=== PATIENT | female | born 1980 | race Caucasian/White ===

== ENCOUNTER 2018-10-09 06:19 | Day surgery (SDC) | payer SELFPAY ==
[2018-10-08 17:53] LABS: HEMOGLOBIN A1C 6.1 % (4.5-6.2)
[2018-10-09] MEDS ORDERED: Lactated Ringers 1,000 ML IV SCH (06:30)
--- NOTE | 2018-10-09 07:14 | PCM.PREANE ---
Preanesthetic Assessment - Anesthesia/Transfusion/Family Hx Anesthesia History: Prior Anesthesia Without Reaction Family History of Anesthesia Reaction: No Transfusion History: No Prior Transfusion(s) - Review of Systems General: No Symptoms Pulmonary: No Symptoms Cardiovascular: No Symptoms Gastrointestinal: No Symptoms Neurological: No Symptoms Other: Reports: None - Physical Assessment NPO Status Date: 10/08/18 Height: 5 ft 5 in Weight: 105.687 kg ASA Class: 2 Mental Status: Alert & Oriented x3 Airway Class: Mallampati = 1 Dentition: Reports: Normal Dentition ROM/Head Extension: Full Lungs: Clear to Auscultation, Normal Respiratory Effort Cardiovascular: Regular Rate, Regular Rhythm - Lab Values: Laboratory Last Values WBC 7.19 K/uL (4.0-11.0) 10/08/18 17:10 RBC 4.64 M/uL (4.30-5.90) 10/08/18 17:10 Hgb 13.4 g/dL (12.0-16.0) 10/08/18 17:10 Hct 41.1 % (36.0-46.0) 10/08/18 17:10 MCV 88.6 fL (80.0-98.0) 10/08/18 17:10 MCH 28.9 pg (27.0-32.0) 10/08/18 17:10 MCHC 32.6 g/dL (31.0-37.0) 10/08/18 17:10 RDW Std Deviation 48.6 fl (28.0-62.0) 10/08/18 17:10 RDW Coeff of Junito 15 % (11.0-15.0) 10/08/18 17:10 Plt Count 265 K/uL (150-400) 10/08/18 17:10 MPV 10.20 fL (7.40-12.00) 10/08/18 17:10 Nucleated RBC % 0.0 /100WBC 10/08/18 17:10 Nucleated RBCs # 0 K/uL 10/08/18 17:10 Hemoglobin A1c 6.1 % (4.5-6.2) 10/08/18 17:10 TSH 3rd Generation 2.84 uIU/mL (0.36-3.74) 10/08/18 17:10 Blood Type A POSITIVE 10/08/18 17:10 Antibody Screen NEGATIVE 10/08/18 17:10 - Allergies Allergies/Adverse Reactions: Allergies Allergy/AdvReac Type Severity Reaction Status Date / Time No Known Allergies Allergy Verified 10/08/18 17:05 - Blood Blood Available: No - Anesthesia Plan Pre-Op Medication Ordered: None - Acknowledgements Anesthesia Type Planned: General Anesthesia Pt an Appropriate Candidate for the Planned Anesthesia: Yes Alternatives and Risks of Anesthesia Discussed w Pt/Guardian: Yes Pt/Guardian Understands and Agrees with Anesthesia Plan: Yes Additional Comments: anes prob list: gerd PLAN: ga/lma with toradol PreAnesthesia Questionnaire HEENT History: Reports: Other (See Below) Other HEENT History: wears glasses/contacts Respiratory History: Reports: Asthma Other Respiratory History: had exercise induced Asthma as a child- does not use an inhaler now 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 [No Known Home Meds] 10/08/18 [History] - CURRENT (IN HOUSE) MEDS Current Meds: Current Medications Lactated Ringer's (Ringers, Lactated) 1,000 mls @ 125 mls/hr IV ASDIRECTED [facility]
[2018-10-09] MEDS ORDERED: Lidocaine 2% 5 ML SDV ONE ×2 (07:17→12:04)
[2018-10-09] MEDS ORDERED: Midazolam 1 MG/ML 2 ML SDV ONE (07:18)
[2018-10-09] MEDS ORDERED: fentaNYL 100 MCG/2 ML SDV ONE (07:18)
[2018-10-09] MEDS ORDERED: Propofol 200 MG/20 ML SDV ONE (07:18)
[2018-10-09] MEDS ORDERED: Dexamethasone 4 MG/ML 5 ML MDV ONE (08:01)
[2018-10-09] MEDS ORDERED: Ondansetron 4 MG/2 ML SDV ONE (08:01)
[2018-10-09] MEDS ORDERED: Ketorolac 30 MG/ML SDV ONE (08:01)
[2018-10-09] MEDS ORDERED: Azithromycin 500 MG in Sodium Chloride 0.9% 250 ML IV ONE ×4 (08:30)
--- NOTE | 2018-10-09 08:41 | PCM.OPNOTE ---
- General Post-Op/Procedure Note Date of Surgery/Procedure: 10/09/18 Operative Procedure(s): suction D&C Findings: Uterus 12 week size mid position. Pre Op Diagnosis: incomplete Post-Op Diagnosis: Same Anesthesia Technique: General ET Tube Primary Surgeon: Nereyda Ravi Anesthesia Provider: Danilo Ervin Pathology: Products of conception Fluid Replacement, Intraop: 1,000 EBL in mLs: 50 Complications: None Known Condition: Good
--- NOTE | 2018-10-09 09:16 | PCM.POSTAN ---
POST ANESTHESIA ASSESSMENT - MENTAL STATUS Mental Status: Alert, Oriented - RESPIRATORY Respiratory Status: Respiratory Rate WNL, Airway Patent, O2 Saturation Stable - CARDIOVASCULAR CV Status: Pulse Rate WNL, Blood Pressure Stable - GASTROINTESTINAL GI Status: No Symptoms - POST OP HYDRATION Hydration Status: Adequate & Stable
--- NOTE | 2018-10-09 09:40 | PCM48HPAN ---
Post Anesthesia Note - EVALUATION WITHIN 48HRS OF ANESTHETIC Vital Signs in Normal Range: Yes Patient Participated in Evaluation: Yes Respiratory Function Stable: Yes Airway Patent: Yes Cardiovascular Function Stable: Yes Hydration Status Stable: Yes Pain Control Satisfactory: Yes Nausea and Vomiting Control Satisfactory: Yes Mental Status Recovered: Yes Resp Rate: 10
[2018-10-09] MEDS ORDERED: Ropivacaine 0.5% 5 MG/ML 30 ML SDV ONE (12:04)
[2018-10-09] MEDS ORDERED: Betamethasone Acetate/Betamethasone Sod Phosphate 30 MG/5 ML MDV ONE (12:04)
[2018-10-09] MEDS ORDERED: Iopamidol 200-M 10 ML vial ITHECAL ONE (12:05)
--- NOTE | 2018-10-09 12:46 | OR ---
SURGEON: Nereyda Ravi M.D. DATE OF PROCEDURE: 10/09/2018 PREOPERATIVE DIAGNOSIS: Incomplete miscarriage with hemorrhage. POSTOPERATIVE DIAGNOSIS: Incomplete miscarriage with hemorrhage. PROCEDURE PERFORMED: Suction D and C. PRIMARY SURGEON: Nereyda Ravi M.D. ANESTHESIA: General endotracheal. FLUIDS: 1000 mL crystalloid. EBL: 50 mL. FINDINGS: Prior to surgery, uterus was 12-week size, mid position, soft; postoperatively, 10 week size, mid position, firm. COMPLICATIONS: None known. DISPOSITION: Stable to recovery. BRIEF HISTORY: This is a 37-year-old female. She presents with bleeding in the clinic with a positive test. HCG level initially was in the range of 13,000 and progesterone was 4. Ultrasound showed no intrauterine but also no abnormality in the adnexa. Followup HCG level in 2 days was still 14,000, and therefore, I recommended proceeding with suction D and C for suspected retained products of conception and also to rule out ectopic with risks discussed including bleeding, infection, uterine perforation with injury to surrounding organs, risk of thromboembolic event, and risk of anesthesia. Understanding all these risks, she does desire to proceed. DESCRIPTION OF PROCEDURE: With the patient in dorsal lithotomy position, under adequate general anesthesia, the perineum and vagina were prepped with Betadine and draped in usual fashion for vaginal surgery. SCDs were in place. The bladder had been drained with a straight cath and she received azithromycin 500 mg preop. After an appropriate time-out was held, the perineum was prepped and draped, and bimanual examination was performed with findings as noted above. Speculum was placed in the vagina. The cervix was dilated and sounded to 13 cm. The cervix was dilated to a 12 mm Hegar dilator and a 12 mm straight suction curette was placed to the uterine fundus and with suction was retracted repetitively until no further tissue was obtained. Sharp curettage was then performed with a good uterine cry felt at the 12, 3, and 6 o'clock position. However, some remaining tissue at the 9 o'clock position, which was removed with curettage and repeated suction, and following this, there was a good cry felt on all surfaces. No further tissue was obtained. Therefore, all of the instruments removed from the vagina. There was minimal bleeding. The uterus was firm, 10 week size. Final sponge, needle, and instrument counts were reported as correct. There were no complications. The patient was transferred to recovery in good condition. KELLY LONGORIA /[id number]
== END 2018-10-09 10:40 | disposition home or self-care (01) ==
LOC: MW.SDS 06:19
PROVIDERS: ATTEND Obstetrics & Gynecology
DX: O03.4 Incomplete spontaneous abortion without complication (principal); L83 Acanthosis nigricans; E04.9 Nontoxic goiter, unspecified; E66.9 Obesity, unspecified; Z68.38 Body mass index [BMI] 38.0-38.9, adult; Z79.899 Other long term (current) drug therapy
CPT/HCPCS: 01965; 36415; 83036; 84443; 84702; 85027; 86850; 86900; 86901; J0456; J0702; J1100; J1885; J2001; J2250; J2405; J2704; J2795; J3010; J7050; J7120; Q9966

== ENCOUNTER 2020-08-16 07:47 | Day surgery (SDC) | payer MEDICAID ==
[~2020-08-16 07:47] MED LIST: Dexamethasone 4 MG/ML 5 ML MDV ONE; Lactated Ringers 1,000 ML IV SCH; Midazolam 1 MG/ML 2 ML SDV ONE; Ondansetron 4 MG/2 ML SDV ONE; Propofol 200 MG/20 ML SDV ONE; Rocuronium Bromide 50 MG/5 ML Syringe ONE; Sodium Chloride 0.9% 10 ML SDV IV PRN; Sodium Chloride 0.9% 10 ML Syringe FLUSH PRN; Sodium Chloride 0.9% 2.5 ML Syringe FLUSH PRN; ceFAZolin 2 GM in Premix Bag 1 BAG IV ONE; fentaNYL 250 MCG/5 ML SDV ONE
--- NOTE | 2020-08-16 08:31 | PCM.PREANE ---
Preanesthetic Assessment - Anesthesia/Transfusion/Family Hx Anesthesia History: Prior Anesthesia Reaction Type of Anesthesia Reaction: Excessive Nausea/Vomiting Family History of Anesthesia Reaction: No Transfusion History: No Prior Transfusion(s) - Review of Systems General: No Symptoms Pulmonary: No Symptoms Cardiovascular: No Symptoms Gastrointestinal: No Symptoms Neurological: No Symptoms Other: Reports: None - Physical Assessment NPO Status Date: 08/16/20 NPO Status Time: 00:01 Vital Signs: Last Vital Signs Temp 97.2 F 08/16/20 08:00 Pulse 76 08/16/20 08:00 Resp 15 08/16/20 08:00 BP 189/93 H 08/16/20 08:00 Pulse Ox 98 08/16/20 08:00 Height: 5 ft 5 in Weight: 240 lb ASA Class: 2 Mental Status: Alert & Oriented x3 Airway Class: Mallampati = 3 Dentition: Reports: Normal Dentition ROM/Head Extension: Limited/Partial Lungs: Clear to Auscultation, Normal Respiratory Effort Cardiovascular: Regular Rate, Regular Rhythm - Lab Values: Laboratory Last Values Urine HCG, Qual NEGATIVE (NEGATIVE) 08/16/20 07:45 - Allergies Allergies/Adverse Reactions: Allergies Allergy/AdvReac Type Severity Reaction Status Date / Time No Known Allergies Allergy Verified 08/10/20 08:18 - Anesthesia Plan Pre-Op Medication Ordered: None - Acknowledgements Anesthesia Type Planned: General Anesthesia Pt an Appropriate Candidate for the Planned Anesthesia: Yes Alternatives and Risks of Anesthesia Discussed w Pt/Guardian: Yes Pt/Guardian Understands and Agrees with Anesthesia Plan: Yes Additional Comments: npo after mn fatigue morbid obesity bmi 39 tob none etoh rare hayfever no cv problems par no questions nausea after T&A 11 years old PreAnesthesia Questionnaire HEENT History: Reports: Other (See Below) Other HEENT History: wears glasses/contacts Cardiovascular History: Reports: Other (See Below) Other Cardiovascular History: "elevated BP at times", not on medication Respiratory History: Reports: Asthma Other Respiratory History: had exercise induced Asthma as a child- does not use an inhaler now Gastrointestinal History: Reports: Other (See Below) Other Gastrointestinal History: occasional heartburn Genitourinary History: Reports: None 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: , 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 Musculoskeletal History: Reports: None Neurological History: Reports: None Psychiatric History: Reports: None Endocrine/Metabolic History: Reports: Obesity/BMI 30+ Other Endocrine/Metabolic History: hypothyroidism in the past, no longer on medication Hematologic History: Reports: None Immunologic History: Reports: None Oncologic (Cancer) History: Reports: None Dermatologic History: Reports: Other (See Below) Other Dermatologic History: occasional rash under breasts - Past Surgical History Head Surgeries/Procedures: Reports: None HEENT Surgical History: Reports: Tonsillectomy Cardiovascular Surgical History: Reports: None Respiratory Surgical History: Reports: None GI Surgical History: Reports: None Female Surgical History: Reports: D&C Endocrine Surgical History: Reports: None Neurological Surgical History: Reports: None Musculoskeletal Surgical History: Reports: None Oncologic Surgical History: Reports: None Dermatological Surgical History: Reports: None - SUBSTANCE USE Tobacco Use Status *Q: Never Tobacco User - HOME MEDS Home Medications: Home Meds Cholecalciferol (Vitamin D3) [Vitamin D] 4,000 units PO DAILY 08/10/20 [History] Clotrimazole [Clotrimazole 1%] 1 applic TOP ASDIRECTED PRN 08/10/20 [History] - CURRENT (IN HOUSE) MEDS Current Meds: Current Medications Lactated Ringer's (Ringers, Lactated) 1,000 mls @ 125 mls/hr IV ASDIRECTED [facility] Last Admin: 08/16/20 08:20 Dose: 125 mls/hr Documented by: Sodium Chloride (Sodium Chloride 0.9% 2.5 Ml Syringe) 2.5 ml FLUSH ASDIRECTED PRN PRN Reason: Keep Vein Open Sodium Chloride (Sodium Chloride 0.9% 10 Ml Sdv) 10 ml IV ASDIRECTED PRN PRN Reason: IV Use Sodium Chloride (Sodium Chloride 0.9% 10 Ml Syringe) 10 ml FLUSH ASDIRECTED PRN PRN Reason: Keep Vein Open Discontinued Medications Dexamethasone (Dexamethasone 4 Mg/Ml 5 Ml Mdv) Confirm Administered Dose 20 mg .ROUTE .STK-MED ONE Stop: 08/16/20 06:59 Fentanyl (Fentanyl 250 Mcg/5 Ml Sdv) Confirm Administered Dose 250 mcg .ROUTE .STK-MED ONE Stop: 08/16/20 06:57 Cefazolin Sodium/Dextrose 2 gm (/ Premix) 50 mls @ 100 mls/hr IV ONETIME ONE Stop: 08/15/20 10:29 Lidocaine HCl (Lidocaine 1% 5 Ml Sdv) Confirm Administered Dose 5 ml .ROUTE .STm[employer]ch[employer] publishing-MED ONE Stop: 08/16/20 06:58 Midazolam HCl (Midazolam 1 Mg/Ml 2 Ml Sdv) Confirm Administered Dose 2 mg .ROUTE .ST[employer]-MED ONE Stop: 08/16/20 06:57 Ondansetron HCl (Ondansetron 4 Mg/2 Ml Sdv) Confirm Administered Dose 4 mg .ROUTE .[employer]First ([employer])MED ONE Stop: 08/16/20 06:59 Propofol (Propofol 200 Mg/20 Ml Sdv) Confirm Administered Dose 200 mg .ROUTE .ST[employer]First ([employer])MED ONE Stop: 08/16/20 06:57 Rocuronium [place] (Rocuronium [place] 50 Mg/5 Ml Syringe) Confirm Administered Dose 50 mg .ROUTE .[facility]MED ONE Stop: 08/16/20 07:00
[2020-08-16] MEDS ORDERED: Octyl 2-Cyanoacrylate 1 Tube ONE (09:11)
[2020-08-16] MEDS ORDERED: Bupivacaine 0.5% 30 ML SDV ONE (09:11)
[2020-08-16] MEDS ORDERED: Propofol 200 MG/20 ML SDV ONE (09:43)
[2020-08-16] MEDS ORDERED: ePHEDrine 50 MG/ML SDV ONE (10:07)
[2020-08-16] MEDS ORDERED: Glycopyrrolate 0.2 MG/ML SDV ONE (10:14)
[2020-08-16] MEDS ORDERED: Ketorolac 30 MG/ML SDV ONE (10:37)
[2020-08-16] MEDS ORDERED: Acetaminophen/oxyCODONE 325-5 MG Tab PO PRN (11:12)
--- NOTE | 2020-08-16 11:52 | PCM.POSTAN ---
POST ANESTHESIA ASSESSMENT - MENTAL STATUS Mental Status: Alert (no anesthetic problems), Oriented - VITAL SIGNS Vital Signs: Last Vital Signs Temp 97.7 F 08/16/20 11:45 Pulse 92 08/16/20 11:45 Resp 14 08/16/20 11:45 BP 145/71 H 08/16/20 11:45 Pulse Ox 94 L 08/16/20 11:45 - RESPIRATORY Respiratory Status: Respiratory Rate WNL, Airway Patent, O2 Saturation Stable - CARDIOVASCULAR CV Status: Pulse Rate WNL, Blood Pressure Stable - GASTROINTESTINAL GI Status: No Symptoms - POST OP HYDRATION Hydration Status: Adequate & Stable
[2020-08-16] MEDS ORDERED: Acetaminophen 1,000 MG in Premix Bag 1 BAG IV ONE (13:42)
[2020-08-16] MEDS ORDERED: Famotidine 20 MG/2 ML SDV ONE (13:54)
[2020-08-16] MEDS ORDERED: Sodium Chloride 0.9% 10 ML Syringe FLUSH PRN (15:42)
[2020-08-16] MEDS ORDERED: Sodium Chloride 0.9% 2.5 ML Syringe FLUSH PRN (15:42)
[2020-08-16] MEDS ORDERED: Ondansetron 4 MG/2 ML SDV IVPUSH PRN (15:43)
--- NOTE | 2020-08-16 16:02 | PCM.OPNOTE ---
- General Post-Op/Procedure Note Date of Surgery/Procedure: 08/16/20 Operative Procedure(s): laparoscopic cholecystectomy Findings: Gallbladder containing stones. omental adhesions to the infundibulum. Pre Op Diagnosis: Symptomatic cholelithiasis Post-Op Diagnosis: same Anesthesia Technique: General ET Tube Primary Surgeon: Sandee Garcia Fluid Replacement, Intraop: 800 Output, Urine Amount: 50 EBL in mLs: 5 Condition: Good Free Text/Narrative:: Intake & Output 08/16/20 08/16/20 08/16/20 06:59 14:59 22:59 Intake Total 900 Output Total 100 Balance 800
--- NOTE | 2020-08-16 16:03 | PCM.SN.2 ---
- Free Text/Narrative Note: Patient unable to wean off of oxygen post op. When O2 removed her saturations dropped to the 70s. The patient is awake, alert, tolerating a diet and otherwise her VS are stable. She has used an IS and is sitting up in bed, but unable to wean. Will monitor overnight. Likely has KILO that is undiagnosed. Wean oxygen as appropriate.
--- NOTE | 2020-08-16 17:20 | OR ---
SURGEON: SANDEE MAHMOOD MD DATE OF PROCEDURE: 08/16/2020 PREOPERATIVE DIAGNOSIS: Symptomatic cholelithiasis. POSTOPERATIVE DIAGNOSIS: Symptomatic cholelithiasis. PROCEDURE PERFORMED: Laparoscopic cholecystectomy. PRIMARY SURGEON: Sandee Mahmood MD ANESTHESIA: General endotracheal anesthesia. FLUIDS: 800 mL of crystalloid. ESTIMATED BLOOD LOSS: 5 mL. URINE OUTPUT: 50 mL. FINDINGS: Enlarged gallbladder containing stones. Omental adhesions along the infundibulum. COMPLICATIONS: None. INDICATIONS: The patient is a 39-year-old female who presents with symptomatic cholelithiasis. I explained the need for cholecystectomy. I will attempt it laparoscopically but convert to open should I be unable to perform it safely. We discussed the expected perioperative course as well as the risks including bleeding, infection, and damage to surrounding structures. She verbalized understanding and wishes to proceed. PROCEDURE IN DETAIL: The patient was brought in to the OR and placed on the OR table in supine position. A time-out was completed verifying the patient's name, age, date of , allergies, and procedure to be performed. General endotracheal anesthesia was induced. The left arm was tucked to the patient's side, and a Nguyen catheter placed. The abdomen was prepped and draped in usual standard fashion. I anesthetized the supraumbilical fold with 0.5% Marcaine plain. A 15 blade was used to make an incision along the supraumbilical fold. Cautery was used to dissect into the level of subcutaneous fat. The patient was noted to have a supraumbilical hernia. This was quite small. I dissected down to the level of the subcutaneous fat. I grasped the edges of the hernia defect with Kochers. The hernia sac was opened sharply with Metzenbaum scissors. Using hemostat and sharp dissection, I dissected down into the abdomen. The hernia sac contained preperitoneal fat. This was reduced back into the abdomen. The hernia defect size was 5 mm. In order to extent my 12 mm Marcial trocar, I used curved Mo scissors to open the fascia along the upper midline. A 12 mm Marcial trocar was introduced into the abdomen, and the abdomen was insufflated. A 5 mm, 30-degree scope was inserted into the abdomen. I inspected the area underneath my initial trocar placement. No damage to surrounding structures was noted. The patient was placed into reverse Trendelenburg position and airplaned slightly to the left. 5 mm trocars were placed in the following locations under direct visualization; one in the epigastric area, one in the right flank, and one 2 fingerbreadths below the right subcostal margin in the midclavicular line. The dome of the gallbladder was grasped and elevated. The patient had omental adhesions along the infundibulum. These were taken down with blunt dissection as well as hook cautery. I then began my dissection along the cystic triangle. The node of Calot was identified. Using a combination of blunt dissection with both suction, a [place], and [place], I took down the majority of the adhesions along the cystic duct and cystic artery. I then used hook cautery to take down the attachments of the gallbladder to the liver bed laterally and medially. I then cleared away 1/3 of my cystic plate. Once I identified both my cystic duct and artery, photographs were taken. The cystic artery branched off the into the gallbladder. I doubly clipped and ligated the 2 branches going into the gallbladder. I then doubly clipped and ligated the cystic duct. The remainder of the attachments of the gallbladder to the cystic plate were taken down using hook cautery. The gallbladder was then placed in an Endo Catch bag and removed through the supraumbilical port site. The gallbladder contained large gallstones, and I had to increase the size of my 12 mm trocar site with scissors just to deliver the gallbladder outside of the abdominal wall. I reinserted my 12 mm Marcial trocar and inspected my operative field. It appeared to be hemostatic, and there was no evidence of bile leakage. A photograph of this was taken. There was a small amount of bruising along the liver bed just above where I took my gallbladder off. A photograph of this was taken. The 5 mm trocars were removed under direct visualization. The abdomen allowed to desufflate. The 12 mm Marcial trocar was removed as well. The fascia at the supraumbilical port site was closed with [id number] 0 Vicryl sutures. This closed the hernia defect. The subcutaneous fat along the supraumbilical port site was closed with interrupted 3-0 Vicryl sutures. The skin was closed with a running 4-0 Monocryl stitch. Interrupted 4-0 Monocryl sutures were used to close the 5 mm trocar sites. Dermabond and sterile dressings were applied. The patient tolerated the procedure well, was extubated and taken to PACU in stable condition. All counts were complete and correct at the end of the case. JORDANA LONGORIA /[id number]
[2020-08-16] MEDS ORDERED: Ketorolac 10 MG Tab PO PRN (17:30)
[2020-08-16] MEDS: Acetaminophen/oxyCODONE 325-5 MG Tab PO PRN (18:55)
--- NOTE | 2020-08-17 07:16 | PCM48HPAN ---
Post Anesthesia Note - EVALUATION WITHIN 48HRS OF ANESTHETIC Vital Signs in Normal Range: Yes Patient Participated in Evaluation: Yes Respiratory Function Stable: Yes Airway Patent: Yes Cardiovascular Function Stable: Yes Hydration Status Stable: Yes Pain Control Satisfactory: Yes Nausea and Vomiting Control Satisfactory: Yes Mental Status Recovered: Yes Vital Signs: Last Vital Signs Temp 36.8 C 08/17/20 04:54 Pulse 68 08/17/20 04:54 Resp 16 08/17/20 04:54 BP 118/71 08/17/20 04:54 Pulse Ox 98 08/17/20 04:54
--- NOTE | 2020-08-17 08:14 | PCM.SURGPN ---
- General Info Date of Service: 08/17/20 Date of Surgery/Procedure: 08/16/20 POD#: 1 Functional Status: Reports: Pain Controlled, Tolerating Diet, Ambulating, Urinating, Incentive Spirometry - Review of Systems General: Reports: No Symptoms HEENT: Reports: No Symptoms Pulmonary: Reports: No Symptoms Cardiovascular: Reports: No Symptoms Gastrointestinal: Reports: No Symptoms Genitourinary: Reports: No Symptoms - Patient Data Vitals - Most Recent: Last Vital Signs Temp 36.2 C 08/17/20 07:32 Pulse 77 08/17/20 07:32 Resp 20 08/17/20 07:32 BP 103/53 L 08/17/20 07:32 Pulse Ox 98 08/17/20 07:32 Weight - Most Recent: 108.862 kg I&O - Last 24 Hours: Intake & Output 08/16/20 08/17/20 08/17/20 22:59 06:59 14:59 Intake Total 2100 1070 Output Total 50 1700 Balance 2050 -630 Lab Results Last 24 Hrs: Laboratory Results - last 24 hr 08/16/20 Range/Units 07:45 Urine HCG, Qual NEGATIVE (NEGATIVE) Med Orders - Current: Current Medications Lactated Ringer's (Ringers, Lactated) 1,000 mls @ 125 mls/hr IV ASDIRECTED [facility] Last Admin: 08/16/20 08:20 Dose: 125 mls/hr Documented by: Ketorolac Tromethamine (Ketorolac 10 Mg Tab) 10 mg PO Q6H PRN PRN Reason: Pain Stop: 08/21/20 17:31 Ondansetron HCl (Ondansetron 4 Mg/2 Ml Sdv) 4 mg IVPUSH Q6H PRN PRN Reason: Nausea/Vomiting Oxycodone/Acetaminophen (Acetaminophen/Oxycodone 325-5 Mg Tab) 1 - 2 tab PO Q4H PRN PRN Reason: Pain (moderate 4-6) Last Admin: 08/16/20 18:55 Dose: 1 tab Documented by: Sodium Chloride (Sodium Chloride 0.9% 2.5 Ml Syringe) 2.5 ml FLUSH ASDIRECTED PRN PRN Reason: Keep Vein Open Sodium Chloride (Sodium Chloride 0.9% 10 Ml Sdv) 10 ml IV ASDIRECTED PRN PRN Reason: IV Use Sodium Chloride (Sodium Chloride 0.9% 10 Ml Syringe) 10 ml FLUSH ASDIRECTED PRN PRN Reason: Keep Vein Open Sodium Chloride (Sodium Chloride 0.9% 10 Ml Syringe) 10 ml FLUSH ASDIRECTED PRN PRN Reason: Keep Vein Open Sodium Chloride (Sodium Chloride 0.9% 2.5 Ml Syringe) 2.5 ml FLUSH ASDIRECTED PRN PRN Reason: Keep Vein Open Discontinued Medications Bupivacaine HCl (Bupivacaine 0.5% 30 Ml Sdv) Confirm Administered Dose 30 ml .ROUTE .STK-MED ONE Stop: 08/16/20 09:12 Dexamethasone (Dexamethasone 4 Mg/Ml 5 Ml Mdv) Confirm Administered Dose 20 mg .ROUTE .STK-MED ONE Stop: 08/16/20 06:59 Ephedrine Sulfate (Ephedrine 50 Mg/Ml Sdv) Confirm Administered Dose 50 mg .ROUTE .STK-MED ONE Stop: 08/16/20 10:08 Famotidine (Famotidine 20 Mg/2 Ml Sdv) Confirm Administered Dose 20 mg .ROUTE .STK-MED ONE Stop: 08/16/20 13:55 Fentanyl (Fentanyl 250 Mcg/5 Ml Sdv) Confirm Administered Dose 250 mcg .ROUTE .STK-MED ONE Stop: 08/16/20 06:57 Glycopyrrolate (Glycopyrrolate 0.2 Mg/Ml Sdv) Confirm Administered Dose 0.4 mg .ROUTE .STK-MED ONE Stop: 08/16/20 10:15 Cefazolin Sodium/Dextrose 2 gm (/ Premix) 50 mls @ 100 mls/hr IV ONETIME ONE Stop: 08/15/20 10:29 Cefazolin Sodium/Dextrose (Ancef 2 Gm/50 Ml) Confirm Administered Dose 50 mls @ as directed .ROUTE .STK-MED ONE Stop: 08/16/20 09:04 Acetaminophen 1,000 mg/ Premix 100 mls @ 400 mls/hr IV NOW ONE Stop: 08/16/20 13:56 Last Admin: 08/16/20 13:47 Dose: 400 mls/hr Documented by: Acetaminophen (Ofirmev 1000 Mg/100 Ml) Confirm Administered Dose 100 mls @ as directed .ROUTE .STK-MED ONE Stop: 08/16/20 13:47 Last Admin: 08/16/20 18:47 Dose: Not Given Documented by: Ketorolac Tromethamine (Ketorolac 30 Mg/Ml Sdv) Confirm Administered Dose 30 mg .ROUTE .STK-MED ONE Stop: 08/16/20 10:38 Lidocaine HCl (Lidocaine 1% 5 Ml Sdv) Confirm Administered Dose 5 ml .ROUTE .STK-MED ONE Stop: 08/16/20 06:58 Midazolam HCl (Midazolam 1 Mg/Ml 2 Ml Sdv) Confirm Administered Dose 2 mg .ROUTE .STK-MED ONE Stop: 08/16/20 06:57 Octyl Cyanoacrylate (Octyl 2-Cyanoacrylate 1 Tube) Confirm Administered Dose 1 applic .ROUTE .STK-MED ONE Stop: 08/16/20 09:12 Ondansetron HCl (Ondansetron 4 Mg/2 Ml Sdv) Confirm Administered Dose 4 mg .ROUTE .STK-MED ONE Stop: 08/16/20 06:59 Oxycodone/Acetaminophen (Acetaminophen/Oxycodone 325-5 Mg Tab) 2 tab PO Q4H PRN PRN Reason: Pain (severe 7-10) Propofol (Propofol 200 Mg/20 Ml Sdv) Confirm Administered Dose 200 mg .ROUTE .STK-MED ONE Stop: 08/16/20 06:57 Propofol (Propofol 200 Mg/20 Ml Sdv) Confirm Administered Dose 200 mg .ROUTE .STK-MED ONE Stop: 08/16/20 09:44 Rocuronium Maynard (Rocuronium Maynard 50 Mg/5 Ml Syringe) Confirm Administered Dose 50 mg .ROUTE .STK-MED ONE Stop: 08/16/20 07:00 - Exam Wound/Incisions: Healing Well, Dressing Dry and Intact General: Alert, Oriented Lungs: Normal Respiratory Effort Cardiovascular: Regular Rate GI/Abdominal Exam: Soft, Non-Tender, No Distention, No Mass Skin: Warm, Dry, Intact Sepsis Event Note - Evaluation Sepsis Screening Result: No Definite Risk - Focused Exam Vital Signs: Vital Signs Temp Pulse Resp BP Pulse Ox 08/17/20 07:32 36.2 C 77 20 103/53 L 98 08/17/20 04:54 36.8 C 68 16 118/71 98 08/17/20 01:36 36.1 C 88 16 130/71 87 L 08/16/20 20:00 37.1 C 96 15 137/71 96 - Problem List & Annotations (1) Symptomatic cholelithiasis SNOMED Code(s): 632864362, 314984373 Code(s): K80.20 - CALCULUS OF GALLBLADDER W/O CHOLECYSTITIS W/O OBSTRUCTION Status: Acute Current Visit: Yes - Problem List Review Problem List Initiated/Reviewed/Updated: Yes - My Orders Last 24 Hours: Active Orders 24 hr Category Date Time Status Overnight Pulse Oximetry [RC] Click to Edit Care 08/16/20 16:04 Active Up ad Mirna [RC] ASDIRECTED Care 08/16/20 15:42 Active Regular Diet [DIET] Diet 08/16/20 Dinner Active Acetaminophen/oxyCODONE [Percocet 325-5 MG] Med 08/16/20 15:44 Active 1 - 2 tab PO Q4H PRN Ketorolac [Toradol] Med 08/16/20 17:30 Active 10 mg PO Q6H PRN Ondansetron [Zofran] Med 08/16/20 15:43 Active 4 mg IVPUSH Q6H PRN Sodium Chloride 0.9% [Saline Flush] Med 08/16/20 15:42 Active 10 ml FLUSH ASDIRECTED PRN Sodium Chloride 0.9% [Saline Flush] Med 08/16/20 15:42 Active 2.5 ml FLUSH ASDIRECTED PRN Convert IV to Saline Lock [OM.PC] Routine Oth 08/16/20 15:42 Ordered Medication Orders Lactated Ringer's (Ringers, Lactated) 1,000 mls @ 125 mls/hr IV ASDIRECTED [facility] Last Admin: 08/16/20 08:20 Dose: 125 mls/hr Documented by: LILIANA Ketorolac Tromethamine (Ketorolac 10 Mg Tab) 10 mg PO Q6H PRN PRN Reason: Pain Stop: 08/21/20 17:31 Ondansetron HCl (Ondansetron 4 Mg/2 Ml Sdv) 4 mg IVPUSH Q6H PRN PRN Reason: Nausea/Vomiting Oxycodone/Acetaminophen (Acetaminophen/Oxycodone 325-5 Mg Tab) 1 - 2 tab PO Q4H PRN PRN Reason: Pain (moderate 4-6) Last Admin: 08/16/20 18:55 Dose: 1 tab Documented by: JEWEL Sodium Chloride (Sodium Chloride 0.9% 2.5 Ml Syringe) 2.5 ml FLUSH ASDIRECTED PRN PRN Reason: Keep Vein Open Sodium Chloride (Sodium Chloride 0.9% 10 Ml Sdv) 10 ml IV ASDIRECTED PRN PRN Reason: IV Use Sodium Chloride (Sodium Chloride 0.9% 10 Ml Syringe) 10 ml FLUSH ASDIRECTED PRN PRN Reason: Keep Vein Open Sodium Chloride (Sodium Chloride 0.9% 10 Ml Syringe) 10 ml FLUSH ASDIRECTED PRN PRN Reason: Keep Vein Open Sodium Chloride (Sodium Chloride 0.9% 2.5 Ml Syringe) 2.5 ml FLUSH ASDIRECTED PRN PRN Reason: Keep Vein Open - Plan Plan (Free Text/Narrative):: Patient is doing well this morning. She is comfortable. She is tolerating a regular diet and urinating without difficulty. She was weaned off oxygen last night while asleep had saturations in the high 80s. She is put on 2 L and her sats increased. She'll be weaned off of oxygen again this morning. The patient likely has obstructive sleep apnea. We'll schedule her for outpatient testing with her primary care physician. She is also hypertensive throughout her stay. We'll have her follow-up with her primary care physician for this as well. The surgical standpoint she is looking good. We went over the discharge instructions again. She is cleared for discharge.
[2020-08-17] MEDS: Acetaminophen/oxyCODONE 325-5 MG Tab PO PRN (08:24)
== END 2020-08-17 10:00 | disposition home or self-care (01) ==
LOC: MW.SDS 07:47 → MW.MS 15:50 → MW.SDS 08-17 10:00
PROVIDERS: ATTEND Surgery
DX: K80.11 Calculus of gallbladder with chronic cholecystitis with obstruction (principal); K82.1 Hydrops of gallbladder; E66.01 Morbid (severe) obesity due to excess calories; Z68.39 Body mass index [BMI] 39.0-39.9, adult
CPT/HCPCS: 47562; 81025; 88304; A9270; J0131; J0690; J1100; J1885; J2250; J2405; J2704; J3010; J3490; J7120; 00790

== ENCOUNTER 2020-08-17 21:03 | Emergency (ER) | payer MEDICAID ==
[2020-08-17] MEDS ORDERED: Sodium Chloride 0.9% 1,000 ML IV ONE (21:26)
[2020-08-17] MEDS ORDERED: Ondansetron 4 MG/2 ML SDV IVPUSH ONE (21:26)
--- NOTE | 2020-08-17 21:32 | EDM.PDOC ---
<Paul Gentile - Last Filed: 08/18/20 02:49> ED HPI GENERAL MEDICAL PROBLEM - General Chief Complaint: Abdominal Pain Stated Complaint: COMPLICATIONS AFTER SURGERY Time Seen by Provider: 08/17/20 21:16 - History of Present Illness INITIAL COMMENTS - FREE TEXT/NARRATIVE: Patient was signed out to me by Albina MALLOY pending CT at 7PM I did reevaluate the patient and patient stated that her pain had significantly improved. She states that she is mildly nauseous otherwise no complaints. Her vitals were normal at this time. Labs reviewed CBC was unremarkable, CMP reveals hyperglycemia at 148, hy pocalcemia at 7.9, mild elevation in AST at 58 and ALT of 73 and hypoalbuminemia at 3.2. The radiological images were viewed by myself along with reading the report from the radiologist. CT abdomen pelvis with contrast reveals a small amount of gas in the bladder likely due to recent bladder instrumentation. A small amount of pelvic ascites is present with a small amount of fluid in the cholecystectomy surgical bed. After imaging I did contact general surgeon Dr. Garcia and I did discuss the labs and results of the CT with her. She states that this is expected postoperative pain. She recommended MiraLAX twice a day and to continue with pain medication. She stated the patient is cleared for use of ibuprofen. She is to maintain fluid hydration. I did discuss the plan with the patient. She was amenable to this plan. I did switch her pain medication to Star as she stated that the Percocet was causing her hands to itch. She is to return for any new or worsening symptoms. She was amenable to discharge and had no further questions DISPOSITION: The patient was discharged home in stable condition. The patient will follow up with general surgery at her scheduled appointment CONDITION: Fair PROCEDURES: None FINAL IMPRESSION(S)/DIAGNOSES: 1. Acute postoperative pain Paul Gentile M.D. - Related Data Allergies Allergy/AdvReac Type Severity Reaction Status Date / Time No Known Allergies Allergy Verified 08/17/20 21:25 Home Meds: Home Meds Acetaminophen/HYDROcodone [Star 325-5 MG] 1 tab PO Q6H PRN #15 tablet 08/18/20 [Rx] Ibuprofen 400 mg PO Q6HR #28 tablet 08/18/20 [Rx] ED ROS GENERAL - Review of Systems Review Of Systems: See Below ED EXAM, GI/ABD - Physical Exam Exam: See Below Departure - Departure Time of Disposition: 00:46 Disposition: Home, Self-Care 01 Condition: Fair Clinical Impression: Post-operative pain - Discharge Information *PRESCRIPTION DRUG MONITORING PROGRAM REVIEWED*: No *COPY OF PRESCRIPTION DRUG MONITORING REPORT IN PATIENT ZOHREH: No Prescriptions: Ibuprofen 400 mg PO Q6HR #28 tablet Acetaminophen/HYDROcodone [Star 325-5 MG] 1 tab PO Q6H PRN #15 tablet PRN Reason: Breakthrough Pain Instructions: Pain Relief Before and After Surgery Referrals: PCP,None [Primary Care Provider] - Forms: ED Department Discharge Additional Instructions: You evaluate today on an emergent basis. At this time your CT showed normal postoperative findings. I did speak with your surgeon and she recommended using MiraLAX twice a day and to continue with fluid hydration at home. There was some difficulty sending your Star prescription. I did provide you with a paper copy. Please take this to the pharmacy and they have any questions please tell him to call the emergency department. If you do not have a bowel movement within 4 days please call your surgeon's office for further direction. If you have any worsening of your symptoms please return to the emergency department. [facility] - General Surgery Professional [address], [address] [place] [address] The patient is informed of any results of their evaluation and diagnostic workup and all questions are answered. They are given discharge instructions and return precautions. The patient is stable for discharge. The patient states they understand and agree with the plan and that they will return if their symptoms get worse or if they have any new concerns. The following information is given to patients seen in the emergency department who are being discharged to home. This information is to outline your options for follow-up care. We provide all patients seen in our emergency department with a follow-up referral. The need for follow-up, as well as the timing and circumstances, are variable depending upon the specifics of your emergency department visit. If you don't have a primary care physician on staff, we will provide you with a referral. We always advise you to contact your personal physician following an emergency department visit to inform them of the circumstance of the visit and for follow-up with them and/or the need for any referrals to a consulting specialist. The emergency department will also refer you to a specialist when appropriate. This referral assures that you have the opportunity for follow-up care with a specialist. All of these measure are taken in an effort to provide you with optimal care, which includes your follow-up. Under all circumstances we always encourage you to contact your private physician who remains a resource for coordinating your care. When calling for follow-up care, please make the office aware that this follow-up is from your recent emergency room visit. If for any reason you are refused follow-up, please contact the [facility] Emergency Department at and asked to speak to the emergency department charge nurse. <David Hernandez E - Last Filed: 08/18/20 09:50> ED HPI GENERAL MEDICAL PROBLEM - General Source of Information: Reports: Patient History Limitations: Reports: No Limitations - History of Present Illness INITIAL COMMENTS - FREE TEXT/NARRATIVE: HISTORY AND PHYSICAL: History of present illness: Patient is a 39-year-old female who presents to the emergency room with c omplaints of generalized abdominal pain, bloating, nausea and vomiting. Patient had a scheduled cholecystectomy by Dr. Garcia done yesterday. She was discharged this morning as she was urinating and tolerating p.o. She was discharged with Percocet. She has taken a total of 3 doses today. Her last dose was approximately 1 hour prior to arrival. She states shortly after her hands became itchy, she felt nauseated and was retching to vomit. Shortly after she had increased abdominal pain and tenderness. She has been passing gas and currently has the sensation of needing to have a bowel movement but had not had one after surgery. Patient denies any fever, chills, headache, change in vision, syncope or near syncope. Denies any chest pain, back pain, shortness of breath or cough. Has not noted any hematuria. Patient has been eating and drinking appropriately. Review of systems: As per history of present illness and below otherwise all systems reviewed and negative. Past medical history: As per history of present illness and as reviewed below otherwise noncontributory. Surgical history: As per history of present illness and as reviewed below otherwise noncontributory. Social history: See social history for further information Family history: As per history of present illness and as reviewed below otherwise noncontributory. Physical exam: General: Well developed and well nourished. Alert and orientated x 3. Nontoxic in appearance and in no acute distress. Vital signs are stable and have been reviewed by me. Nursing notes were reviewed. HEENT: Atraumatic, normocephalic, pupils equal and reactive bilaterally, negative for conjunctival pallor or scleral icterus, mucous membranes moist, neck supple, nontender, trachea midline. No drooling or trismus noted. No men ingeal signs. No hot potato voice noted. Lungs: Clear to auscultation bilaterally. No wheezes, rales, or rhonchi. Chest nontender. Normal work of breathing, no accessory muscles used. Heart: S1S2, regular rate and rhythm without overt murmur, gallops, or rubs. No JVD. No peripheral edema Abdomen: Recent laparoscopic cholecystectomy with 3 stab sites to the abdomen. Generalized tenderness around these stab sites. Soft, mildly distended, generalized tenderness. Normoactive bowel sounds. Negative for masses or costovertebral tenderness. Skin: 3 stab sites with intact dressings to abdomen. No surrounding errythema. Remaining skin is intact, warm, dry. No lesions or rashes noted. Hematologic: No petechiae or purpra. Mucosa appropriate color and normal nail bed color and refill. Extremities: Atraumatic, moves all extremities per self without difficulty or deficits, negative for cords or calf pain. Neurovascular unremarkable. Neuro: Awake, alert, oriented. Cranial nerves II through XII unremarkable. Cerebellum unremarkable. Motor and sensory unremarkable throughout. Exam nonfocal. Psychiatric: Mood and affect are appropriate. Normal thought process. Answering questions appropriately. Notes: *This patient was seen and evaluated during the 2019 SARS-CoV-2 novel coronavirus pandemic period. Community viral transmission is ongoing at time of this encounter and the emergency department is operating under pandemic response procedures. Patient is agreeable to lab work and imaging at this time. She is vitally stable. Will give some IV fluids and Zofran while waiting for results. 2200: Diagnostic results are pending. Patient remains stable. Dr Gentile will follow labs and disposition patient appropriately. Diagnostics: CBC, CMP, UA, CT abd/pelvis Therapeutics: IV fluids, Zofran Impression: Post-Operative Abdominal Pain Definitive disposition and diagnosis as appropriate pending reevaluation and review of above. abdominal Pain Score (Numeric/FACES): 8 Past Medical History HEENT History: Reports: Other (See Below) Other HEENT History: wears glasses/contacts Cardiovascular History: Reports: Other (See Below) Other Cardiovascular History: "elevated BP at times", not on medication Respiratory History: Reports: Asthma Other Respiratory History: had exercise induced Asthma as a child- does not use an inhaler now Gastrointestinal History: Reports: Other (See Below) Other Gastrointestinal History: occasional heartburn Genitourinary History: Reports: None PUNCHER History: Reports: , Spontaneous Musculoskeletal History: Reports: None Neurological History: Reports: None Psychiatric History: Reports: None Endocrine/Metabolic History: Reports: Obesity/BMI 30+ Other Endocrine/Metabolic History: hypothyroidism in the past, no longer on medication Hematologic History: Reports: None Immunologic History: Reports: None Oncologic (Cancer) History: Reports: None Dermatologic History: Reports: Other (See Below) Other Dermatologic History: occasional rash under breasts - Past Surgical History Head Surgeries/Procedures: Reports: None HEENT Surgical History: Reports: Tonsillectomy Cardiovascular Surgical History: Reports: None Respiratory Surgical History: Reports: None GI Surgical History: Reports: None Female Surgical History: Reports: D&C Endocrine Surgical History: Reports: None Neurological Surgical History: Reports: None Musculoskeletal Surgical History: Reports: None Oncologic Surgical History: Reports: None Dermatological Surgical History: Reports: None Social & Family History - Family History Family Medical History: No Pertinent Family History - Tobacco Use Tobacco Use Status *Q: Never Tobacco User - Recreational Drug Use Recreational Drug Use: No Course - Vital Signs Last Recorded V/S: Last Vital Signs Temp 96.3 F L 08/18/20 01:04 Pulse 84 08/18/20 01:04 Resp 16 08/17/20 21:23 BP 120/93 H 08/18/20 01:04 Pulse Ox 92 L 08/18/20 01:04 - Orders/Labs/Meds Labs: Laboratory Tests 08/17/20 08/17/20 Range/Units 21:47 21:47 WBC 8.20 (4.0-11.0) K/uL RBC 4.87 (4.30-5.90) M/uL Hgb 13.8 (12.0-16.0) g/dL Hct 43.7 (36.0-46.0) % MCV 89.7 (80.0-98.0) fL MCH 28.3 (27.0-32.0) pg MCHC 31.6 (31.0-37.0) g/dL RDW Std Deviation 48.7 (28.0-62.0) fl RDW Coeff of Junito 15 (11.0-15.0) % Plt Count 328 (150-400) K/uL MPV 10.10 (7.40-12.00) fL Neut % (Auto) 48.7 (48.0-80.0) % Lymph % (Auto) 45.6 H (16.0-40.0) % Dodge % (Auto) 4.3 (0.0-15.0) % Eos % (Auto) 1.0 (0.0-7.0) % Baso % (Auto) 0.4 (0.0-1.5) % Neut # (Auto) 4.0 (1.4-5.7) K/uL Lymph # (Auto) 3.7 H (0.6-2.4) K/uL Dodge # (Auto) 0.4 (0.0-0.8) K/uL Eos # (Auto) 0.1 (0.0-0.7) K/uL Baso # (Auto) 0.0 (0.0-0.1) K/uL Nucleated RBC % 0.0 /100WBC Nucleated RBCs # 0 K/uL Sodium 139 (136-145) mmol/L Potassium 3.8 (3.5-5.1) mmol/L Chloride 101 (98-107) mmol/L Carbon Dioxide 29.6 (21.0-32.0) mmol/L BUN 16 (7.0-18.0) mg/dL Creatinine 0.9 (0.6-1.0) mg/dL Est Cr Clr Drug Dosing 74.77 mL/min Estimated GFR (MDRD) > 60.0 ml/min Glucose 148 H (74-106) mg/dL Calcium 7.9 L (8.5-10.1) mg/dL Total Bilirubin 0.3 (0.2-1.0) mg/dL AST 58 H (15-37) IU/L ALT 73 H (14-63) IU/L Alkaline Phosphatase 86 (46-116) U/L Total Protein 7.2 (6.4-8.2) g/dL Albumin 3.2 L (3.4-5.0) g/dL Globulin 4.0 (2.6-4.0) g/dL Albumin/Globulin Ratio 0.8 L (0.9-1.6) Meds: Medications Discontinued Medications Generic Name Dose Route Start Last Admin Trade Name Freq PRN Reason Stop Dose Admin Sodium Chloride 1,000 mls @ 999 mls/hr 08/17/20 21:26 08/17/20 21:45 Normal Saline IV 08/17/20 22:26 999 mls/hr STAT ONE Administration Iopamidol 100 ml 08/17/20 22:46 08/17/20 22:47 Iopamidol 755 Mg/Ml 100 Ml Bottle IVPUSH 08/17/20 22:47 100 ml ONETIME ONE Administration Ondansetron HCl 4 mg 08/17/20 21:26 08/17/20 21:45 Ondansetron 4 Mg/2 Ml Sdv IVPUSH 08/17/20 21:27 4 mg ONETIME ONE Administration Ondansetron HCl 4 mg 08/18/20 00:46 08/18/20 00:50 Ondansetron 4 Mg Tab.Dis PO 08/18/20 00:47 4 mg ONETIME ONE Administration Sepsis Event Note (ED) - Evaluation Sepsis Screening Result: No Definite Risk - Focused Exam Vital Signs: Vital Signs Temp Pulse BP Pulse Ox 08/18/20 01:04 96.3 F L 84 120/93 H 92 L
[2020-08-17 22:32] LABS: BLOOD UREA NITROGEN,BUN 16 mg/dL (7.0-18.0); CARBON DIOXIDE,CO2 29.6 mmol/L (21.0-32.0); CHLORIDE,CL 101 mmol/L (98-107); GLUCOSE RANDOM 148 mg/dL (74-106); POTASSIUM,K 3.8 mmol/L (3.5-5.1); SODIUM,NA 139 mmol/L (136-145)
[2020-08-17] MEDS ORDERED: Iopamidol 755 Mg/ML 100 ML Bottle IVPUSH ONE (22:46)
--- NOTE | 2020-08-17 23:26 | CT ---
INDICATION: Recent cholecystectomy. Abdominal pain TECHNIQUE: CT Abdomen and pelvis with i.v. contrast. Coronal and sagittal reformats were obtained. CONTRAST: 100 mL Isovue 370 COMPARISON: None FINDINGS: Lower chest: Unremarkable. Liver: Moderate diffuse fatty infiltration of the liver is notedwith mild focal fatty sparing near the gallbladder fossa. Spleen: Unremarkable. Pancreas: Unremarkable. Gallbladder: The patient is status post cholecystectomy. Kidney: Unremarkable. No kidney or ureteral stones or obstruction seen. Adrenal: Unremarkable. Bowel: Unremarkable. The appendix is normal in appearance and size. Vascular: Unremarkable. Lymph: Unremarkable. Peritoneum: A small amount of pelvic ascites is present with a small amount of fluid in the cholecystectomy surgical bed. Infiltration of the umbilical fat and adjacent omental fat noted with trace soft tissue gas seen, likely from recent laparoscopic trocar introduction. No pneumoperitoneum is seen. Pelvis: Small amount of gas is present in the bladder. Small bilateral fat containing inguinal hernias are noted. Soft tissue: Unremarkable. Bone: Unremarkable for age. IMPRESSIONS: 1. Small amount of gas is present in the bladder. This is likely due to recent bladder instrumentation but in the absence of this history, a gas forming urinary tract infection should be considered. 2. A small amount of pelvic ascites is present with a small amount of fluid in the cholecystectomy surgical bed. If there is clinical concern for bile leak, evaluation with HIDA scan is recommended. Dictated by Froilan Luis MD @ 08/17/2020 11:25:10 PM Please note that all CT scans at this facility use dose modulation, iterative reconstruction, and/or weight-based dosing when appropriate to reduce radiation dose to as low as reasonably achievable. Dictated by: Froilan Luis MD @ 08/17/2020 23:25:16 (Electronically Signed)
[2020-08-18] MEDS ORDERED: Ondansetron 4 MG Tab.DIS PO ONE (00:46)
== END 2020-08-18 01:04 | disposition home or self-care (01) ==
LOC: MW.ED 21:03
DX: G89.18 Other acute postprocedural pain (principal); R10.84 Generalized abdominal pain
CPT/HCPCS: 36415; 74177; 80053; 85025; 96374; 99284; A9270; J2405; J7030; Q9967

== ENCOUNTER 2021-01-01 15:22 | Emergency (ER) | payer MEDICAID ==
[2021-01-01] MEDS ORDERED: Sodium Chloride 0.9% 1,000 ML IV ONE (16:31)
[2021-01-01] MEDS ORDERED: Ondansetron 4 MG/2 ML SDV IVPUSH ONE (16:31)
--- NOTE | 2021-01-01 16:34 | EDM.PDOC ---
ED HPI GENERAL MEDICAL PROBLEM - General Chief Complaint: General Stated Complaint: VOMITTING NAUSEA Time Seen by Provider: 01/01/21 16:00 Source of Information: Reports: Patient History Limitations: Reports: No Limitations - History of Present Illness INITIAL COMMENTS - FREE TEXT/NARRATIVE: Patient is a 48-year-old female who I recently diagnosed with Covid presents today for increased fatigue and nausea vomiting. Patient has not been given any thing down since being diagnosed. States he feels weak and tired she is try a little bit more water but occasionally vomited up. She reports mild shortness of breath but states is improving since her diagnosis. She denies any fever chills currently on no abdominal pain no chest pain. feels miserable Pain Score (Numeric/FACES): 8 - Related Data Allergies Allergy/AdvReac Type Severity Reaction Status Date / Time No Known Allergies Allergy Verified 08/17/20 21:25 Home Meds: Home Meds Acetaminophen/HYDROcodone [[place] 325-5 MG] 1 tab PO Q6H PRN #15 tablet 08/18/20 [Rx] Ibuprofen 400 mg PO Q6HR #28 tablet 08/18/20 [Rx] Past Medical History HEENT History: Reports: Other (See Below) Other HEENT History: wears glasses/contacts Cardiovascular History: Reports: Other (See Below) Other Cardiovascular History: "elevated BP at times", not on medication Respiratory History: Reports: Asthma Other Respiratory History: had exercise induced Asthma as a child- does not use an inhaler now Gastrointestinal History: Reports: Other (See Below) Other Gastrointestinal History: occasional heartburn Genitourinary History: Reports: None 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: , Spontaneous Musculoskeletal History: Reports: None Neurological History: Reports: None Psychiatric History: Reports: None Endocrine/Metabolic History: Reports: Obesity/BMI 30+ Other Endocrine/Metabolic History: hypothyroidism in the past, no longer on med ication Hematologic History: Reports: None Immunologic History: Reports: None Oncologic (Cancer) History: Reports: None Dermatologic History: Reports: Other (See Below) Other Dermatologic History: occasional rash under breasts - Infectious Disease History Infectious Disease History: Reports: Chicken Pox, Novel Coronavirus - Past Surgical History Head Surgeries/Procedures: Reports: None HEENT Surgical History: Reports: Tonsillectomy Cardiovascular Surgical History: Reports: None Respiratory Surgical History: Reports: None GI Surgical History: Reports: None Female Surgical History: Reports: D&C Endocrine Surgical History: Reports: None Neurological Surgical History: Reports: None Musculoskeletal Surgical History: Reports: None Oncologic Surgical History: Reports: None Dermatological Surgical History: Reports: None Social & Family History - Family History Family Medical History: No Pertinent Family History ED ROS GENERAL - Review of Systems Review Of Systems: See Below Constitutional: Reports: No Symptoms HEENT: Reports: No Symptoms Respiratory: Reports: No Symptoms Cardiovascular: Reports: No Symptoms Endocrine: Reports: No Symptoms GI/Abdominal: Reports: Nausea, Vomiting : Reports: No Symptoms Musculoskeletal: Reports: No Symptoms Skin: Reports: No Symptoms Neurological: Reports: No Symptoms Psychiatric: Reports: No Symptoms Hematologic/Lymphatic: Reports: No Symptoms Immunologic: Reports: No Symptoms ED EXAM, GENERAL - Physical Exam Exam: See Below Exam Limited By: No Limitations General Appearance: Alert, WD/WN, No Apparent Distress Ears: Normal External Exam Respiratory/Chest: No Respiratory Distress, Lungs Clear, Normal Breath Sounds Cardiovascular: Normal Peripheral Pulses, Regular Rate, Rhythm GI/Abdominal: Normal Bowel Sounds, Soft, Non-Tender Extremities: Normal Inspection Neurological: Alert, Oriented, Normal Cognition, Normal Gait Course - Vital Signs Last Recorded V/S: Last Vital Signs Temp 98.1 F 01/01/21 17:11 Pulse 77 01/01/21 17:48 Resp 18 01/01/21 17:48 BP 125/77 01/01/21 17:48 Pulse Ox 98 01/01/21 18:06 - Orders/Labs/Meds Labs: Laboratory Tests 01/01/21 01/01/21 Range/Units 16:29 16:58 WBC 3.43 L (4.0-11.0) K/uL RBC 4.89 (4.30-5.90) M/uL Hgb 13.6 (12.0-16.0) g/dL Hct 41.5 (36.0-46.0) % MCV 84.9 (80.0-98.0) fL MCH 27.8 (27.0-32.0) pg MCHC 32.8 (31.0-37.0) g/dL RDW Std Deviation 47.0 (28.0-62.0) fl RDW Coeff of Junito 15 (11.0-15.0) % Plt Count 179 (150-400) K/uL MPV 10.10 (7.40-12.00) fL Neut % (Auto) 62.1 (48.0-80.0) % Lymph % (Auto) 30.0 (16.0-40.0) % [place] % (Auto) 7.9 (0.0-15.0) % Eos % (Auto) 0.0 (0.0-7.0) % Baso % (Auto) 0.0 (0.0-1.5) % Neut # (Auto) 2.1 (1.4-5.7) K/uL Lymph # (Auto) 1.0 (0.6-2.4) K/uL [place] # (Auto) 0.3 (0.0-0.8) K/uL Eos # (Auto) 0.0 (0.0-0.7) K/uL Baso # (Auto) 0.0 (0.0-0.1) K/uL Nucleated RBC % 0.0 /100WBC Nucleated RBCs # 0 K/uL Sodium 141 (136-145) mmol/L Potassium 3.7 (3.5-5.1) mmol/L Chloride 103 (98-107) mmol/L Carbon Dioxide 35.5 H (21.0-32.0) mmol/L BUN 7 (7.0-18.0) mg/dL Creatinine 0.7 (0.6-1.0) mg/dL Est Cr Clr Drug Dosing TNP Estimated GFR (MDRD) > 60.0 ml/min Glucose 124 H (74-106) mg/dL Calcium 7.9 L (8.5-10.1) mg/dL Total Bilirubin 0.3 (0.2-1.0) mg/dL AST 91 H (15-37) IU/L ALT 128 H (14-63) IU/L Alkaline Phosphatase 125 H (46-116) U/L Total Protein 6.7 (6.4-8.2) g/dL Albumin 2.7 L (3.4-5.0) g/dL Globulin 4.0 (2.6-4.0) g/dL Albumin/Globulin Ratio 0.7 L (0.9-1.6) Lipase 40 L (73-393) U/L Meds: Medications Discontinued Medications Generic Name Dose Route Start Last Admin Trade Name Freq PRN Reason Stop Dose Admin Sodium Chloride 1,000 mls @ 999 mls/hr 01/01/21 16:31 01/01/21 16:36 Normal Saline IV 01/01/21 17:31 999 mls/hr .BOLUS ONE Administration Ondansetron HCl 4 mg 01/01/21 16:31 01/01/21 16:36 Ondansetron 4 Mg/2 Ml Sdv IVPUSH 01/01/21 16:32 4 mg ONETIME ONE Administration - Re-Assessments/Exams Free Text/Narrative Re-Assessment/Exam: 01/01/21 18:39 Patient labs reviewed patient be discharged home Departure - Departure Time of Disposition: 18:40 Disposition: Home, Self-Care 01 Condition: Good Clinical Impression: Viral illness - Discharge Information *PRESCRIPTION DRUG MONITORING PROGRAM REVIEWED*: Not Applicable *COPY OF PRESCRIPTION DRUG MONITORING REPORT IN PATIENT ZOHREH: Not Applicable Instructions: Viral Illness, Adult Referrals: PCP,None [Primary Care Provider] - Forms: ED Department Discharge Additional Instructions: The following information is given to patients seen in the emergency department who are being discharged to home. This information is to outline your options for follow-up care. We provide all patients seen in our emergency department wit h a follow-up referral. The need for follow-up, as well as the timing and circumstances, are variable depending upon the specifics of your emergency department visit. If you don't have a primary care physician on staff, we will provide you with a referral. We always advise you to contact your personal physician following an emergency department visit to inform them of the circumstance of the visit and for follow-up with them and/or the need for any referrals to a consulting specialist. The emergency department will also refer you to a specialist when appropriate. This referral assures that you have the opportunity for follow-up care with a specialist. All of these measure are taken in an effort to provide you with optimal care, which includes your follow-up. Under all circumstances we always encourage you to contact your private physician who remains a resource for coordinating your care. When calling for follow-up care, please make the office aware that this follow-up is from your recent emergency room visit. If for any reason you are refused follow-up, please contact the [facility] Emergency Department at and asked to speak to the emergency department charge nurse. Please follow up with your primary care physician. If you do not have a primary care physician, see below: [facility] [address] [place] [address] [facility] [address] [place] [address] You are seen today for worsening Covid symptoms. We repeated your x-ray was looks better we will get your labs as well. Please go home and try to stay hydrated and take [id number] medications for your symptoms. If you have any worsening symptoms please feel free to return to the ED otherwise follow-up to primary care physician. Sepsis Event Note (ED) - Evaluation Sepsis Screening Result: No Definite Risk - Focused Exam Vital Signs: Vital Signs Temp Pulse Resp BP Pulse Ox 01/01/21 18:06 98 01/01/21 18:05 88 L 01/01/21 17:48 77 18 125/77 94 L 01/01/21 17:11 98.1 F 74 18 112/78 97 01/01/21 16:50 83 18 116/80 94 L 01/01/21 15:41 97.9 F 86 18 131/81 94 L - Assessment/Plan Plan: Patient is a 40-year-old female presents today for nausea vomiting. Patient exam looks well lungs are clear and satting well on room air 95%. We will obta in labs Zofran IV fluids and reassess.
[2021-01-01 17:27] LABS: BLOOD UREA NITROGEN,BUN 7 mg/dL (7.0-18.0); CARBON DIOXIDE,CO2 35.5 mmol/L (21.0-32.0); CHLORIDE,CL 103 mmol/L (98-107); GLUCOSE RANDOM 124 mg/dL (74-106); LIPASE 40 U/L (73-393); POTASSIUM,K 3.7 mmol/L (3.5-5.1); SODIUM,NA 141 mmol/L (136-145)
--- NOTE | 2021-01-01 18:10 | CR ---
HISTORY: Cough. TECHNIQUE: One view of the chest. COMPARISON: No prior. FINDINGS: Cardiac size and pulmonary vasculature are within normal limits. No focal lung infiltrate or pulmonary edema. No pneumothorax. No moderate or large pleural effusion. IMPRESSION: No focal lung infiltrate. Dictated by Ludin Wynn MD @ 01/01/2021 6:09:21 PM (Electronically Signed)
== END 2021-01-01 20:34 | disposition home or self-care (01) ==
LOC: MW.ED 15:22
DX: B34.9 Viral infection, unspecified (principal); E66.9 Obesity, unspecified; Z68.30 Body mass index [BMI] 30.0-30.9, adult; Z86.16 Personal history of COVID-19
CPT/HCPCS: 36415; 71045; 80053; 83690; 85025; 96374; 99284; J2405; J7030